=== PATIENT | female | born 1975 | race Caucasian/White ===

== ENCOUNTER → 2019-02-24 | Outpatient (CLI) | payer OTHER ==
[~2019-02-24] MED LIST: HUMIRA PEN40 MG/0.4; LIPITOR20 MG
== END ==
LOC: MC.RAD 13:56
DX: Z12.31 Encounter for screening mammogram for malignant neoplasm of breast (principal); Z98.82 Breast implant status

== ENCOUNTER 2019-02-27 12:08 | Emergency (ER) | payer OTHER ==
[~2019-02-27] VITALS: Ht 167.6 cm; Wt 61.4 kg
[2019-02-27 12:17] VITALS: TEMP 98.6
[2019-02-27] MEDS ORDERED: HUMIRA PEN40 MG/0.4 (12:23)
[2019-02-27] MEDS ORDERED: LIPITOR20 MG (12:23)
[2019-02-27 13:26] LABS: BASO # 0.1 (0.0-0.2); EOS # 0.2 (0.0-0.7); EOS % 3.6 % (0-4.0); GRAN # 3.2 (1.4-6.5); GRAN % 52.4 % (42.2-75.2); HEMATOCRIT 37.9 % (37.0-47.0); HEMOGLOBIN 13.3 g/dl (12.5-16.0); LYMPH # 2.2 (1.2-3.4); LYMPH % 36.1 % (20.0-51.0); MEAN CELL VOLUME 96 fl (80.0-100.0); MEAN CORPUSCULAR HEMOGLOBIN 34 pg (27.0-31.0); MEAN CORPUSCULAR HGB CONC 35 g/dl (33.0-37.0); MEAN PLATELET VOLUME 9.6 fl (7.4-10.4); MONO # 0.4 (0.1-0.6); MONO % 6.7 % (1.7-9.3); PLATELET COUNT 227 K/mm3 (130-400); RED BLOOD COUNT 3.96 M/mm3 (4.10-5.30); REDCELL DISTRIBUTION WIDTH-CV 11.1 % (11.5-14.5)
[2019-02-27 13:31] LABS: PROTHROMBIN TIME 11.6 SECONDS (9.7-12.8)
[2019-02-27 13:33] LABS: PARTIAL THROMBOPLASTIN TIME 29.6 SECONDS (26.0-37.0)
[2019-02-27 13:36] LABS: ALANINE AMINOTRANSFERASE 36 U/L (9-52); ALBUMIN 3.9 gm/dL (3.5-5.0); ALKALINE PHOSPHATASE 46 U/L (50-136); ANION GAP 7 mmol/L (7-16); AST,SGOT 41 U/L (15-37); BILIRUBIN,TOTAL 0.5 mg/dL (0.0-1.0); BLOOD UREA NITROGEN 15 mg/dL (7-17); CARBON DIOXIDE 24 mmol/L (22-30); CHLORIDE 106 mmol/L (98-107); GLUCOSE 76 mg/dL (74-106); POTASSIUM 3.7 mmol/L (3.4-5.0); SODIUM 137 mmol/L (137-145); TOTAL PROTEIN 6.4 gm/dL (6.4-8.2)
[2019-02-27 13:48] LABS: TROPONIN-I < 0.012 ng/mL (0.000-0.035)
[2019-02-27 14:00] VITALS: BP 116/67; PULSE 57
== END 2019-02-27 14:12 | disposition home or self-care (01) ==
LOC: COL.ER 12:08
PROVIDERS: Family Medicine
DX: R07.89 Other chest pain (principal); E78.5 Hyperlipidemia, unspecified

== ENCOUNTER 2019-05-09 08:59 | Emergency (ER) | payer OTHER ==
[~2019-05-09] VITALS: Ht 167.6 cm; Wt 61.4 kg
[2019-05-09] MEDS ORDERED: CEPHALEXIN500 M1 PO (09:35)
[2019-05-09 09:57] VITALS: BP 131/72; PULSE 68; TEMP 99.1
== END 2019-05-09 10:00 | disposition home or self-care (01) ==
LOC: COL.ER 08:59
DX: N64.89 Other specified disorders of breast (principal)

== ENCOUNTER → 2019-05-10 | Outpatient (CLI) | payer OTHER ==
[~2019-05-10] MED LIST changes: +CEPHALEXIN500 M1 PO
== END ==
LOC: ZCOL.LAB 21:51
DX: Z01.89 Encounter for other specified special examinations (principal)

== ENCOUNTER → 2019-06-11 | Outpatient (CLI) | payer OTHER | LOC: COL.RAD 06-02 15:00 | DX: D18.03 Hemangioma of intra-abdominal structures (principal); K57.92 Diverticulitis of intestine, part unspecified, without perforation or abscess without bleeding | CPT/HCPCS: Q9967 ==

== ENCOUNTER 2020-06-30 09:11 | Outpatient (RCR) | payer OTHER | END 2020-08-21 | disposition home or self-care (01) | LOC: WSOH | DX: S80.12XA Contusion of left lower leg, initial encounter (principal); F41.9 Anxiety disorder, unspecified; Y99.0 Civilian activity done for income or pay; Z98.890 Other specified postprocedural states ==

== ENCOUNTER → 2021-05-24 | Outpatient (CLI) | payer OTHER | LOC: COL.RAD 06:56 | DX: D18.09 Hemangioma of other sites (principal); R10.11 Right upper quadrant pain ==

== ENCOUNTER → 2021-05-31 | Outpatient (CLI) | payer OTHER | LOC: COL.RAD 06:34 | DX: R10.11 Right upper quadrant pain (principal) | CPT/HCPCS: A9537; J2805 ==

== ENCOUNTER → 2022-03-29 | Outpatient (CLI) | payer OTHER | LOC: MC.RAD 08:50 | DX: Z12.31 Encounter for screening mammogram for malignant neoplasm of breast (principal) ==